=== PATIENT | female | born 1985 | race Caucasian/White ===

== ENCOUNTER 2017-01-27 03:07 | Emergency (ER) | payer SELFPAY ==
[2017-01-27 03:17] VITALS: BP 118/66
--- NOTE | 2017-01-27 03:35 | EDM.PDOC ---
ED HPI GENERAL MEDICAL PROBLEM - General Chief Complaint: Upper Extremity Injury/Pain Stated Complaint: SWOLLEN LEFT HAND Time Seen by Provider: 01/27/17 03:26 Source of Information: Reports: Patient History Limitations: Reports: No Limitations - History of Present Illness INITIAL COMMENTS - FREE TEXT/NARRATIVE: The patient fell last week and hit her hand on a door frame. She went to the walk in clinic at [place] and they did an x-ray. There was no fracture. Tonight she was reaching for a bag in her vehicle and she jammed her finger. She has more swelling now and pain to her left index finger and hand. She is right handed. Onset: Sudden Duration: Week(s): (1) Location: Reports: Upper Extremity, Left (Index finger and hand) Quality: Reports: Sharp Severity: Moderate Improves with: Reports: None Worsens with: Reports: Movement Associated Symptoms: Reports: No Other Symptoms Left Hand Pain Score (Numeric/FACES): 9 - Related Data Allergies Allergy/AdvReac Type Severity Reaction Status Date / Time No Known Allergies Allergy Verified 01/27/17 03:16 Home Meds: Home Meds . [No Known Home Meds] 01/27/17 [History] Past Medical History Psychiatric History: Reports: Addiction Social & Family History - Family History Family Medical History: Noncontributory - Tobacco Use Smoking Status *Q: Current Every Day Smoker Years of Tobacco use: 12 Packs/Tins Daily: 0.5 - Recreational Drug Use Recreational Drug Use: Yes Recreational Drug Type: Reports: Methamphetamine Recreational Drug Use Frequency: Not Used In Over 2 Months Review of Systems - Review of Systems Review Of Systems: See Below Constitutional: Reports: No Symptoms Eyes: Reports: No Symptoms Ears: Reports: No Symptoms Nose: Reports: No Symptoms Mouth/Throat: Reports: No Symptoms Respiratory: Reports: No Symptoms Cardiovascular: Reports: No Symptoms GI/Abdominal: Reports: No Symptoms Genitourinary: Reports: No Symptoms Musculoskeletal: Reports: Other (Left index finger pain and ruth and left hand pain) ED EXAM, GENERAL - Physical Exam Exam: See Below Exam Limited By: No Limitations General Appearance: Alert, No Apparent Distress Ears: Normal External Exam Nose: Normal Inspection Head: Atraumatic, Normocephalic Neck: Normal Inspection Respiratory/Chest: No Respiratory Distress Extremities: Other (Moderate edema to the left index finger and to the left hand over the 2nd and 3rd MCP joints. Good sensation and capillary refill. ) Course - Vital Signs Last Recorded V/S: Last Vital Signs Temp 97.7 F 01/27/17 03:13 Pulse 117 H 01/27/17 03:13 Resp 16 01/27/17 03:13 BP 118/66 01/27/17 03:13 Pulse Ox 100 01/27/17 03:13 - Orders/Labs/Meds Orders: Active Orders 24 hr Category Date Time Status Hand Comp Min 3V Lt [CR] Stat Exams 01/27/17 03:30 Taken - Re-Assessments/Exams Free Text/Narrative Re-Assessment/Exam: 01/27/17 03:54 She has no fracture or dislocation on x-ray. I will splint her finger and give her something for pain and have her follow up with OT. Departure - Departure Time of Disposition: 03:55 Disposition: Home, Self-Care 01 Condition: Good Clinical Impression: Sprain of left index finger Qualifiers: Encounter type: initial encounter Sprain of finger site: other site Qualified Code(s): S63.691A - Other sprain of left index finger, initial encounter - Discharge Information Referrals: Adrien Hunter MD [Physician] - 1 Week Forms: ED Department Discharge Additional Instructions: Ice your finger for 15 minutes every other hour while awake for 2 days. Try to elevate your finger above your heart for 2 days. Wear the splint for 2 weeks. Follow up with occupational therapy. You can call [phone] to make an appointment. Follow up with Dr Hunter if you are not better in 1 week. - My Orders Last 24 Hours: My Active Orders 01/27/17 03:30 Hand Comp Min 3V Lt [CR] Stat - Assessment/Plan Last 24 Hours: My Active Orders 01/27/17 03:30 Hand Comp Min 3V Lt [CR] Stat
--- NOTE | 2017-01-27 12:16 | CR ---
Left hand: Four views of the left hand were obtained. Joint spaces are preserved. Soft tissue swelling noted within the second finger. No acute fracture or other bony abnormality is seen. Impression: 1. Soft tissue swelling within the second digit. 2. No acute bony abnormality is identified on left hand study. Diagnostic code #2
== END 2017-01-27 04:00 | disposition home or self-care (01) ==
LOC: JD.ED 03:07
DX: S63.691A Other sprain of left index finger, initial encounter (principal); F17.210 Nicotine dependence, cigarettes, uncomplicated; W01.198A Fall on same level from slipping, tripping and stumbling with subsequent striking against other object, initial encounter
CPT/HCPCS: 73130-26-LT; 73130-LT; 99282; 99283

== ENCOUNTER 2017-01-28 18:09 | Emergency (ER) | payer SELFPAY ==
--- NOTE | 2017-01-28 19:20 | EDM.PDOC ---
ED HPI GENERAL MEDICAL PROBLEM - General Chief Complaint: Medication Administration Stated Complaint: RE CK SWOLLEN HAND Time Seen by Provider: 01/28/17 18:45 Source of Information: Reports: Patient, Old Records (recent ER visit ) History Limitations: Reports: No Limitations - History of Present Illness INITIAL COMMENTS - FREE TEXT/NARRATIVE: 31-year-old female presents for evaluation and treatment of injury to the left hand second finger. Original injury occurred on Thursday, January 19, 2017. Patient reports that she was walking on some stairs when she hit her finger on the door frame. She reports that she was seen at the [place] [facility] walk-in clinic where she had x-rays completed. No fracture was identified. Patient reports that on January 24. She was reaching for a Bag out of the backseat of her car. She states that she reinjured the finger at that time by jamming her finger. That night she presented to the ER. X-rays were again performed which showed no acute fracture or dislocation. Patient was splinted and prescribed [place] 12/02/24 #10. She was instructed to follow-up with occupational therapy and orthopedics if not better in 1 week. Patient reports that she called to schedule with OT but they would not see her due to her pain and swelling. Patient has not been wearing the splint. She states that she does not have any tape and does not know how to put the splint on. Patient denies any new trauma since Wednesday. Reports decreased ROM, numbness and tingling to the finger. Reports pain from the 2nd finger extending to her elbow with movement. No erythema, fevers, nausea or vomiting. No open wounds. Patient is requesting a refill of her norco. Patient is right handed. Left Hand Pain Score (Numeric/FACES): 6 - Related Data Allergies Allergy/AdvReac Type Severity Reaction Status Date / Time No Known Allergies Allergy Verified 01/28/17 18:37 Home Meds: Home Meds Ibuprofen 800 mg PO TID #30 tablet 01/28/17 [Rx] oxyCODONE HCl/Acetaminophen [Percocet 5-325 mg Tablet] 1 tab PO Q4H PRN [History] Past Medical History - Past Health History Medical/Surgical History: Denies Medical/Surgical History Psychiatric History: Reports: Addiction Social & Family History - Family History Family Medical History: Noncontributory - Tobacco Use Smoking Status *Q: Current Every Day Smoker Years of Tobacco use: 12 Packs/Tins Daily: 0.2 - Caffeine Use Caffeine Use: Reports: Soda - Recreational Drug Use Recreational Drug Use: Yes Drug Use in Last 12 Months: Yes Recreational Drug Type: Reports: Methamphetamine Recreational Drug Use Frequency: Not Used In Over 2 Months ED ROS GENERAL - Review of Systems Review Of Systems: See Below Constitutional: Denies: Fever GI/Abdominal: Denies: Nausea, Vomiting Musculoskeletal: Reports: Arm Pain (left hand second finger pain, swelling and decreased ROM) Skin: Denies: Erythema, Wound Neurological: Reports: Numbness, Tingling ED EXAM, GENERAL - Physical Exam Exam: See Below Exam Limited By: No Limitations General Appearance: Alert, WD/WN, No Apparent Distress Respiratory/Chest: No Respiratory Distress, Lungs Clear Cardiovascular: Normal Peripheral Pulses, Regular Rate, Rhythm Peripheral Pulses: 2+: Radial (L), Radial (R) Extremities: Joint Swelling (left hand 2nd finger swelling), Limited Range of Motion (able to abduct and adduct left fingers; unable to fully extend left hand 2nd finger, unable to flex finger (both DIP and PIP joint) ) Neurological: Alert, Oriented, Normal Cognition Psychiatric: Normal Affect, Normal Mood Skin Exam: Warm, Dry. No: Ecchymosis, Erythema Course - Vital Signs Last Recorded V/S: Last Vital Signs Temp 36.8 C 01/28/17 18:33 Pulse 108 H 01/28/17 18:33 Resp 16 01/28/17 18:33 BP 119/82 01/28/17 18:33 Pulse Ox 100 01/28/17 18:33 - Re-Assessments/Exams Free Text/Narrative Re-Assessment/Exam: 01/28/17 19:12 I review the patient's recent ER visit, xray and xray result. Possible that she has an ligamentous injury but difficult to evaluate at this time due to swelling. I suspect she is non compliant with splinting, icing and NSAIDs. Will repoint her finger. Prescription written for ibuprofen 800mg. Follow-up with ortho. Discharge instructions as documented. Patient requests Gift[employer]. She was searched on the [place] drug registry. Only one prescription from the ER the other night. However, I do not feel her injury warrants narcotic pain medication. Treatment for sprain include rest, ice, elevate, NSAIDs and immobilization. Departure - Departure Time of Disposition: 19:16 Disposition: Home, Self-Care 01 Condition: Good Clinical Impression: Sprain of left index finger - Discharge Information Prescriptions: Ibuprofen 800 mg PO TID #30 tablet Instructions: Finger Sprain, [id number] Referrals: PCP,None [Primary Care Provider] - Forms: ED Department Discharge Additional Instructions: Take ibuprofen 800mg PO tid prn pain and swelling. May take OTC tylenol in addition to the ibuprofen for additional pain relief. Splint or esha tape at all times. Ice the finger 4 or 5 times a day for 10-15 minutes. Gentle stretching and ROM as tolerated. Follow-up with ortho next week. Elevate, as much as you are able to, above the level of your heart. Please return to the ER should your symptoms change or worsen.
== END 2017-01-28 19:34 | disposition home or self-care (01) ==
LOC: JD.ED 18:09
CPT/HCPCS: 99283

== ENCOUNTER 2017-10-02 06:46 | Emergency (ER) | payer SELFPAY ==
[2017-10-02 06:57] VITALS: BP 118/66
[2017-10-02] MEDS ORDERED: Methadone 10 MG Tab PO ONE (07:15)
--- NOTE | 2017-10-02 07:26 | EDM.PDOC ---
ED HPI GENERAL MEDICAL PROBLEM - General Chief Complaint: Drug or Alcohol Abuse Stated Complaint: DRUG WITHDRAWALS Time Seen by Provider: 10/02/17 06:55 Source of Information: Reports: Patient History Limitations: Reports: No Limitations - History of Present Illness INITIAL COMMENTS - FREE TEXT/NARRATIVE: The patient is on methadone for drug addiction. She gets the methadone from [place]. She is here in [place] helping someone get there house ready to sell and she is withdrawing. He last dose was a few days ago. She has nausea, cramping, muscle aches, chills, and some shaking. She is looking to get some methadone. Onset: Gradual Duration: Day(s): (2) Location: Reports: Generalized Quality: Reports: Ache Severity: Moderate Improves with: Reports: None Worsens with: Reports: None Associated Symptoms: Reports: Fever/Chills, Nausea/Vomiting. Denies: Chest Pain , Cough, Headaches, Shortness of Breath Headache Pain Score (Numeric/FACES): 4 - Related Data Allergies Allergy/AdvReac Type Severity Reaction Status Date / Time No Known Allergies Allergy Verified 10/02/17 06:58 Home Meds: Home Meds Methadone HCl [Methadone] 50 mg PO DAILY 10/02/17 [History] Past Medical History - Past Health History Medical/Surgical History: Denies Medical/Surgical History [employer] History: Reports: Psychiatric History: Reports: Addiction Other Psychiatric History: on methadone Social & Family History - Family History Family Medical History: Noncontributory - Tobacco Use Smoking Status *Q: Current Every Day Smoker Years of Tobacco use: 15 Packs/Tins Daily: 1 Used Tobacco, but Quit: No - Caffeine Use Caffeine Use: Reports: None - Recreational Drug Use Recreational Drug Use: Yes Drug Use in Last 12 Months: Yes Recreational Drug Type: Reports: Methamphetamine, Opium Recreational Drug Use Frequency: Not Used In Over 2 Months ED ROS GENERAL - Review of Systems Review Of Systems: See Below Constitutional: Reports: Chills HEENT: Reports: No Symptoms Respiratory: Reports: No Symptoms Cardiovascular: Reports: No Symptoms Endocrine: Reports: No Symptoms GI/Abdominal: Reports: Abdominal Pain, Nausea : Reports: No Symptoms Musculoskeletal: Reports: Muscle Pain Skin: Reports: No Symptoms - Physical Exam Exam: See Below Exam Limited By: No Limitations General Appearance: Alert, No Apparent Distress Ears: Normal External Exam Nose: Normal Inspection Head Exam: Atraumatic, Normocephalic Neck: Normal Inspection Respiratory/Chest: No Respiratory Distress, Lungs Clear, Normal Breath Sounds Cardiovascular: Regular Rate, Rhythm, No Edema, No Murmur GI/Abdominal: Normal Bowel Sounds, Soft, Non-Tender, No Organomegaly Neuro Exam (Abbreviated): Alert, Oriented, No Motor/Sensory Deficits Course - Vital Signs Last Recorded V/S: Last Vital Signs Temp 97.6 F 10/02/17 06:54 Pulse 79 10/02/17 06:54 Resp 18 10/02/17 06:54 BP 118/66 10/02/17 06:54 Pulse Ox 100 10/02/17 06:54 - Orders/Labs/Meds Meds: Medications Discontinued Medications Generic Name Dose Route Start Last Admin Trade Name Nandini PRN Reason Stop Dose Admin Methadone HCl 50 mg 10/02/17 07:15 Methadone PO 10/02/17 07:16 ONETIME ONE - Re-Assessments/Exams Free Text/Narrative Re-Assessment/Exam: 10/02/17 07:25 I have ordered 50mg by mouth. I will discharge her home. Departure - Departure Time of Disposition: 07:25 Disposition: Home, Self-Care 01 Condition: Good Clinical Impression: Opioid withdrawal - Discharge Information Referrals: PCP,None [Primary Care Provider] - Additional Instructions: Please return if you are worse. Follow up with your doctor.
== END 2017-10-02 07:40 | disposition home or self-care (01) ==
LOC: JD.ED 06:46
DX: F11.23 Opioid dependence with withdrawal (principal); R11.0 Nausea; T40.2X5A Adverse effect of other opioids, initial encounter; F17.210 Nicotine dependence, cigarettes, uncomplicated
CPT/HCPCS: 99284; A9270; 99283

== ENCOUNTER 2017-11-12 09:13 | Emergency (ER) | payer SELFPAY ==
[2017-11-12 09:29] VITALS: BP 112/73
[2017-11-12] MEDS ORDERED: Methadone 10 MG Tab PO ONE (09:42)
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
== END 2017-11-12 11:50 | disposition home or self-care (01) ==
LOC: JD.ED 09:13
DX: F11.23 Opioid dependence with withdrawal (principal); Z79.899 Other long term (current) drug therapy; F17.210 Nicotine dependence, cigarettes, uncomplicated
CPT/HCPCS: 99284; A9270; 99283